=== PATIENT | female | born 1950 | race Caucasian/White ===

== ENCOUNTER 2016-12-16 11:47 | Emergency (ER) | payer BC ==
[2016-12-16 12:02] VITALS: BP 123/55
--- NOTE | 2016-12-16 12:20 | UC ---
Throat Pain/Nasal Blas HPI - HPI Summary HPI Summary: SIX DAYS OF SINUS CONGESTION, PRESSURE, LOW GRADE FEVER, POST NASAL DRIP. 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 HAS LEUKEMIA (CLL). - History of Current Complaint Chief Complaint: UC Stated Complaint: SINUS ISSUE Time Seen by Provider: 12/16/16 11:52 Hx Obtained From: Patient Onset/Duration: Gradual Onset, Lasting Days, Worse Since - DAILY Severity: Moderate Cough: Nonproductive Associated Signs & Symptoms: Positive: Sinus Discomfort, Nasal Discharge - Epiglottits Risk Factors Epiglottis Risk Factors: Negative - Allergies/Home Medications Allergies/Adverse Reactions: Allergies Allergy/AdvReac Type Severity Reaction Status Date / Time Clindamycin Allergy Diarrhea Verified 12/16/16 11:54 Penicillins [PCN] Allergy Itching Verified 12/16/16 11:54 Sulfa Antibiotics Allergy Itching Verified 12/16/16 11:54 Home Medications: Home Medications Citalopram TAB* [CeleXA TAB*] 10 mg PO DAILY 12/16/16 [History Confirmed ] Fexofenadine (NF) [Emiliana (NF)] 60 mg PO DAILY PRN 12/16/16 [History Confirmed 12/16/16] Cqozxhaqspbdk-Exppyjubve-Frvaz [Nyquil Severe Cold/Flu 5-6.25-10-325 mg/15Ml] 12/16/16 [History] hydrOXYzine PAMOATE CAP* [Vistaril CAP*] 25 mg PO DAILY 12/16/16 [History Confirmed 12/16/16] traZODone TAB* [Desyrel TAB*] 150 mg PO BEDTIME 12/16/16 [History Confirmed ] PMH/Surg Hx/FS Hx/Imm Hx Previously Healthy: Yes Cancer History Of: Denies: Breast Cancer - Surgical History Surgical History: Yes Surgery Procedure, Year, and Place: TUBAL-1989, inguinal hernia repair, bladder lesion removed, bladder sling - Family History Known Family History: Negative: Respiratory Disease - Social History Occupation: Employed Full-time Lives: With Family Alcohol Use: Occasionally Substance Use Type: None Smoking Status (MU): Never Smoked Tobacco - Immunization History Most Recent Influenza Vaccination: fall 2015 Review of Systems Constitutional: Fever Skin: Negative Eyes: Negative ENT: Ear Ache, Nasal Discharge Respiratory: Cough Cardiovascular: Negative Gastrointestinal: Negative Genitourinary: Negative Motor: Negative Neurovascular: Negative Musculoskeletal: Negative Neurological: Negative Psychological: Negative All Other Systems Reviewed And Are Negative: Yes Physical Exam Triage Information Reviewed: Yes Appearance: No Pain Distress, Well-Nourished, Ill-Appearing - MILD Vital Signs: Initial Vital Signs Temp 99.7 F 12/16/16 11:57 Pulse 93 12/16/16 11:57 Resp 16 12/16/16 11:57 BP 123/55 12/16/16 11:57 Pulse Ox 97 12/16/16 11:57 Vital Signs Reviewed: Yes Eye Exam: Normal Eyes: Positive: Conjunctiva Clear ENT: Positive: Hearing grossly normal, Nasal congestion, TM bulging, TM dull Dental Exam: Normal Neck exam: Normal Neck: Positive: Supple, Nontender, No Lymphadenopathy Respiratory Exam: Normal Respiratory: Positive: Chest non-tender, Lungs clear, Normal breath sounds, No respiratory distress, No accessory muscle use Cardiovascular Exam: Normal Cardiovascular: Positive: RRR, No Murmur, Pulses Normal Abdominal Exam: Normal Abdomen Description: Positive: Nontender, No Organomegaly Musculoskeletal Exam: Normal Musculoskeletal: Positive: Strength Intact, ROM Intact Neurological Exam: Normal Psychological Exam: Normal Psychological: Positive: Normal Response To Family Skin Exam: Normal Throat Pain/Nasal Course/Dx - Differential Dx/Diagnosis Differential Diagnosis/HQI/PQRI: Pharyngitis, Sinusitis, Tonsillitis, URI Provider Diagnoses: SINUSITIS Discharge - Discharge Plan Condition: Stable Disposition: HOME Prescriptions: DOXYcycline CAP(*) [DOXYcycline 100MG CAP(*)] 100 mg PO BID #20 cap Patient Education Materials: Doxycycline (By mouth), Sinusitis (ED) Referrals: Delphine Vasquez NP [Primary Care Provider] -
== END 2016-12-16 12:20 | disposition home or self-care (01) ==
LOC: UCEAST 11:47
DX: J01.90 Acute sinusitis, unspecified (principal); B96.89 Other specified bacterial agents as the cause of diseases classified elsewhere; Z88.0 Allergy status to penicillin; Z88.1 Allergy status to other antibiotic agents
CPT/HCPCS: 99212; G0463

== ENCOUNTER 2023-12-19 05:35 | Observation (INO) ==
[~2023-12-19 05:35] MED LIST: HYDROmorphone 1 MG/1 ML SYRINGE IV PRN; Metoclopramide 5 MG/ML VIAL (10 mg) IV PRN; Naloxone 0.4 mg VIAL 0.4 mg/ml 1 ml VIAL IV PRN; Ondansetron 4 mg VIAL 2 MG/ML 2 ml VIAL IV PRN; fentaNYL 100 mcg/2 ml 50 MCG/ML VIAL IV PRN
[2023-12-19] MEDS ORDERED: ceFAZolin 2 GM PREMIX 2 GM/50 ML BAG ONE (06:03)
[2023-12-19] MEDS ORDERED: Chlorhexidine MOUTHWASH 0.12% 15 ML UDC ONE (06:03)
[2023-12-19] MEDS ORDERED: Dexamethasone IV 4 MG/ML VIAL 1 ml VIAL ONE (06:15)
[2023-12-19] MEDS ORDERED: Ondansetron 4 mg VIAL 2 MG/ML 2 ml VIAL ONE (06:15)
[2023-12-19] MEDS ORDERED: Propofol 10 MG/ML 20 ML BTL ONE (06:15)
[2023-12-19] MEDS ORDERED: Lidocaine 2% PF 5 ML VIAL ONE (06:15)
[2023-12-19] MEDS ORDERED: Rocuronium 50 mg VIAL 10 mg/ml 5 ml VIAL (50 mg) ONE ×2 (06:16→08:42)
[2023-12-19] MEDS ORDERED: fentaNYL 100 mcg/2 ml 50 MCG/ML VIAL ONE (06:16)
[2023-12-19] MEDS ORDERED: Midazolam 2 mg/2 ml VIAL 1 mg/ml 2 ml VIAL (2 mg) ONE (06:16)
[2023-12-19 06:17] LABS: Rapid COVID-19 Molecular Undetected (Undetected)
[2023-12-19] MEDS ORDERED: Gelfoam Sponge SIZE 100 SPONGE ONE (06:52)
[2023-12-19] MEDS ORDERED: ceFAZolin VIAL VIAL ONE (06:52)
[2023-12-19] MEDS ORDERED: Thrombin 5,000 UNITS(BOVINE) for Ultrasound Guided Pseudoaneursym ONE (06:52)
[2023-12-19] MEDS ORDERED: Lidocaine 1% w EPI 1:200,000 SDV 30 ML VIAL ONE (06:52)
[2023-12-19] MEDS ORDERED: HYDROmorphone 0.5 MG/0.5 ML SYRINGE ONE (07:44)
[2023-12-19] MEDS ORDERED: Ondansetron 4 mg VIAL 2 MG/ML 2 ml VIAL IV PRN ×2 (09:08→11:49)
[2023-12-19] MEDS ORDERED: Senna TAB 8.6 mg TAB PO PRN (09:08)
[2023-12-19] MEDS ORDERED: Phenol 1.4% Throat Spray BTL MT PRN (09:08)
[2023-12-19] MEDS ORDERED: Magnesium Hydroxide LIQ 30 ML UDC PO PRN (09:08)
[2023-12-19] MEDS ORDERED: Calcium Carb (TUMS) 500 mg CHEW TAB PO PRN (09:08)
[2023-12-19] MEDS ORDERED: Morphine 2 MG/ML SYRINGE IV PRN (09:08)
[2023-12-19] MEDS ORDERED: Dextran 70/Hypromellose Tears Eye Drops 15 ml BTL (for Artificials Tears) BOTH EYES PRN (09:08)
[2023-12-19] MEDS ORDERED: HYDROcodone/ACETAMIN 5/325 mg TAB PO PRN (09:08)
[2023-12-19] MEDS ORDERED: Lactated Ringers 1000 ml BAG 1,000 ML IV SCH ×3 (10:00→16:00)
[2023-12-19] MEDS ORDERED: Metoclopramide 5 MG/ML VIAL (10 mg) IV PRN (11:49)
[2023-12-19] MEDS ORDERED: Naloxone 0.4 mg VIAL 0.4 mg/ml 1 ml VIAL IV PRN (11:49)
[2023-12-19] MEDS ORDERED: fentaNYL 100 mcg/2 ml 50 MCG/ML VIAL IV PRN (11:49)
[2023-12-19] MEDS ORDERED: Buffered Lidocaine 1% SYRIN 1 ml INTRADERM ONE ×2 (11:49→15:08)
[2023-12-19] MEDS: HYDROcodone/ACETAMIN 5/325 mg TAB PO PRN ×2 (14:54→20:19)
[2023-12-19] MEDS: Benzocaine/Menthol LOZ MT PRN (14:56)
[2023-12-19] MEDS ORDERED: UPADACITINIB 15 MG PO SCH (19:00)
[2023-12-20] MEDS: Benzocaine/Menthol LOZ MT PRN (07:29)
[2023-12-20] MEDS: HYDROcodone/ACETAMIN 5/325 mg TAB PO PRN (09:11)
[2023-12-20 09:48] VITALS: BP 129/64
== END 2023-12-20 12:01 | disposition home or self-care (01) ==
LOC: OR 05:35 → SSU 10:43 → INTOOBSV 10:43
PROVIDERS: ADMIT Neurological Surgery; ATTEND Neurological Surgery